=== PATIENT | female | born 1995 | race Caucasian/White ===

== ENCOUNTER 2017-10-18 04:16 | Inpatient (IN) | payer OTHER ==
[~2017-10-18] VITALS: Ht 167.6 cm; Wt 59.0 kg
--- NOTE | ~2017-10-18 | HC ---
[facility] [place] [address] CONSULTATION Name: VILMA GARCIA Room #: 401-I [facility] Erasto Medel#: [id number] Admission: 10/18/17 Attend Phys: Mickey Bradshaw MD, Discharge: Date of : 89 Report #: [id number] THIS REPORT FOR: //name// CC: Mickey Palencia REASON FOR CONSULTATION: I was asked to evaluate concerning abdominal pain and erythema nodosum lesions. HISTORY OF PRESENT ILLNESS: The patient was a 22-year-old otherwise healthy individual who traveled to the [facility] 2 weeks ago. Two days after return visit, she developed upper abdominal discomfort. This has persisted. She has had no definite fever, although she has had night sweats. No nausea or vomiting. Her stools have been normal. Has some headache. Developed some aphthous ulcers to her oral mucosa. No neck stiffness. No photophobia. No cough or sputum production. No sore throat. Did develop rash to her left anterior chest with mild pruritus. She has had development of painful erythematous raised lesions to her lower extremities 2 days ago. These have progressed. No vaginal discharge. No dysuria or frequency. She is on Zoloft and control. She has not allowed breakthrough for the last 3 months. Last menstrual period was in June. No HIV risk factors. Other members of her traveling alliance party, 2 adults and 2 children. Both children are ill with fever, one of which is being treated for influenza. This, however, has not been documented positive. ALLERGIES: PENICILLIN with rash. MEDICATIONS: As noted above. PAST MEDICAL HISTORY: Unremarkable. FAMILY HISTORY: Noncontributory. SOCIAL HISTORY: Nonsmoker and intermittent social alcohol intake. REVIEW OF SYSTEMS: As noted above. No tuberculosis exposure. PHYSICAL EXAMINATION: VITAL SIGNS: Afebrile, hemodynamically stable. GENERAL: She was alert and cooperative and pleasant, in no acute distress. HEENT: Mild conjunctival injection, right eye. Mouth: Three aphthous ulcers, one of which is on the lower lip at the mucosal border. NECK: Supple, no thyromegaly, no adenopathy. LUNGS: Clear. HEART: Regular without murmur. ABDOMEN: Soft, tender in the right upper quadrant. No guarding or rebound. No masses or hepatosplenomegaly. [address] [address] CONSULTATION Name: VILMA GARCIA Room #: [address] [place] [address] Erasto Medel#: [id number] Admission: 10/18/17 Attend Phys: Mickey Bradshaw MD, Discharge: Date of : 93 Report #: [id number] GENITAL AND RECTAL: Not performed. EXTREMITIES: Unremarkable. SKIN: Mildly erythematous papular rash to her left anterior chest. Lower extremities, erythematous, tender raised lesions of various sizes, mostly over the anterior aspect of her lower legs, but also upper lateral thighs. NEUROLOGIC: Normal. LABORATORY DATA: Hemoglobin 13.1, WBC 11.2, platelet count 313,000. Differential: 79% segs, 12% lymphs. Sedimentation rate 53. Sodium 138, potassium 3.8, bicarbonate 24, creatinine 0.7, glucose 109, ALT 22, AST 18, bilirubin 0.3, alkaline phosphatase 67. C-reactive protein 167. TSH normal. Lipase normal. Monospot negative. Beta hCG negative. Urinalysis, few wbc's, many bacteria. CT scan of the abdomen and pelvis, haziness within the maria teresa hepatis, otherwise unremarkable. Considering possibility of mild duodenitis. Transvaginal ultrasound, mild thickening of the endocervical canal. IMPRESSION: A 22-year-old, recent travel from [facility] presents with suspected low grade fever, night sweats, persistent abdominal pain with erythema nodosum lesions, elevated sedimentation rate, mild leukocytosis concerning for typhoid, other consideration viral etiology. Although group A strep is commonly associated with erythema nodosum, I am finding no definite streptococcal findings. Nothing to suggest sarcoid or tuberculosis at this time. With the endocervical changes, would also evaluate for chlamydia and other STDs. The patient does not, however, give me a good history of such exposure. Although no diarrhea, we will also check Giardia and stool for Salmonella, Campylobacter which can be associated with erythema nodosum. Inflammatory bowel disease would also be a consideration, although her acute onset and recent travel would suggest different. We will treat with ceftriaxone, doxycycline, metronidazole for now. If her GC chlamydia negative, we can drop out the doxycycline and metronidazole. We will await blood cultures and stool cultures. We will also check chest x-ray and serologic studies. Case was discussed with the patient, her mother and nursing at the bedside. We will discuss further with attending. <ELECTRONICALLY SIGNED> By: Javier Lopez MD 10/20/17 0738 [id number] 51 Javier Lopez MD /nt
--- NOTE | ~2017-10-18 | 2DMMODE ---
[facility] [address] [place] [address] 2 D/M-MODE ECHOCARDIOGRAM Name: VILMA GARCIA Room #: 401-I [facility] IN ..#: [id number] Admission: 10/18/17 Attend Phys: Mickey Bradshaw, Discharge: Date of : 93 Date of Service: 10/20/17 0853 Report #: [id number] THIS REPORT FOR: //name// APPROVED REPORT Study performed: 10/20/2017 07:57:42 EXAM: Comprehensive 2D, Doppler, and color-flow Echocardiogram Patient Location: Bedside Room #: 401 Status: routine BSA: 1.67 HR: 62 bpm BP: 122/70 mmHg Other Information Study Quality: Good Indications Hypertension/HDD 2D Dimensions RVDd: 29.44 mm LVEF(%): 63.63 (>50%) IVSd: 11.10 (7-11mm) LVOT Diam: 18.54 (18-24mm) LVDd: 42.19 mm PWd: 11.83 (7-11mm) Ascending Ao: 27.58 (22-36mm) LVDs: 27.74 (25-40mm) Aortic Root: 26.76 mm IVC: 18.00 mm Reynoso's LVEF: 63.63 % Volumes Left Atrial Volume (Systole) Single Plane 4CH: 40.73 mL Single Plane 2CH: 33.01 mL LA ESV Index: 27.00 mL/m2 Aortic Valve AoV Peak Joel.: 1.25 m/s AO Peak Gr.: 6.23 mmHg LVOT Max P.19 mmHg LVOT Max V: 1.02 m/s KIRILL Vmax: 2.21 cm2 Mitral Valve E/A Ratio: 1.6 MV Decel. Time: 246.66 ms MV E Max Joel.: 0.97 m/s [facility] [address] [place] [address] 2 D/M-MODE ECHOCARDIOGRAM Name: VILMA GARCIA Room #: 401-I [facility].#: [id number] Admission: 10/18/17 Attend Phys: Mickey Bradshaw, Discharge: Date of : 89 Date of Service: 10/20/17 0853 Report #: [id number] MV A Joel.: 0.59 m/s MV PHT: 71.53 ms IVRT: 79.58 ms Pulmonary Valve PV Peak Joel.: 0.92 m/s PV Peak Gr.: 3.40 mmHg Pulmonary Vein P Vein S: 0.64 m/s P Vein A: 0.51 m/s P Vein D: 0.59 m/s P Vein A Dur.: 166.1 msec P Vein S/D Ratio: 1.08 Tricuspid Valve RAP Estimate: 5.00 mmHg Left Ventricle The left ventricle is normal size. There is normal LV segmental wall motion. There is normal left ventricular wall thickness. The left ventricular systolic function is normal. The left ventricular ejection fraction is within the normal range. LVEF is 60-65%. The left ventricular diastolic function is normal. Right Ventricle The right ventricle is normal size. The right ventricular systolic function is normal. Atria The left atrium size is normal. The right atrium size is normal. Aortic Valve The aortic valve is normal in structure. No aortic regurgitation is present. There is no aortic valvular stenosis. Mitral Valve The mitral valve is normal in structure. Anterior leaflet systolic flattening without prolapse Mild mitral regurgitation. No evidence of mitral valve stenosis. Tricuspid Valve The tricuspid valve is normal in structure. Trace tricuspid regurgitation. Pulmonic Valve The pulmonary valve is normal in structure. Trace pulmonic regurgitation. [facility] [address] [place] [address] 2 D/M-MODE ECHOCARDIOGRAM Name: MICHELLE GARCIABRYSON Torre Room #: 401-I [facility] IN [facility]#: [id number] Admission: 10/18/17 Attend Phys: Mickey Bradshaw, Discharge: Date of : 89 Date of Service: 10/20/17 0853 Report #: [id number] Great Vessels The aortic root is normal in size. IVC is normal in size and collapses >50% with inspiration. Pericardium There is no pericardial effusion. <Conclusion> The left ventricular systolic function is normal. There is normal LV segmental wall motion. LVEF is 60-65%. Normal diastolic function The aortic valve is normal in structure. No aortic valvular stenosis or insufficiency. The mitral valve is normal in structure. Mild anterior systolic flattening without prolapse. Mild mitral regurgitation. Pulmonary artery pressure could not be reliably ascertained There is no pericardial effusion. <ELECTRONICALLY SIGNED> By: Alfa Deras MD, FACC 10/20/17 0853 2 2 Alfa Deras MD, FACC /INF
--- NOTE | ~2017-10-18 | H ---
[facility] [place] [address] HISTORY AND PHYSICAL Name: VILMA GARCIA Room #: 401-I [facility] [place] M.R.#: [id number] Admission: 10/20/17 Attend Phys: Mickey Bradshaw MD, Discharge: 10/20/17 Date of : 93 Report #: [id number] THIS REPORT FOR: //name// CC: Mickey Palencia DATE OF SERVICE: 10/18/2017 HISTORY OF PRESENT ILLNESS: The patient is a 22-year-old female who was admitted with one week history of progressive abdominal pain, now localized to right lower quadrant, mildly constitutionally sick. No high fevers that have been documented, a recent week in the [facility], was not sick there. She has been exposed to nieces with influenza. The only medications are Zoloft and control pills. Has fluctuating and waves of nauseas. Abdominal CAT scan suggests some haziness around the head of the pancreas, but more importantly is the question of some uterine abnormality, some fluid in the cul-de-sac and some uterine fluid. LABORATORY DATA: Sed rate is 53 and CRP is 167. White count 11,000. Chemistry and liver function tests are otherwise normal. PAST MEDICAL HISTORY: Essentially negative. SOCIAL HISTORY: She is a single, college graduate. Social alcohol, no tobacco or illicit drugs. FAMILY HISTORY: Has sister with IgA nephropathy, otherwise nothing significant. REVIEW OF SYSTEMS: Essentially negative except for as stated above and some anorexia this week. PHYSICAL EXAMINATION: GENERAL: She is in mildly discomfort. VITAL SIGNS: Blood pressure is 146/83, pulse is 90s and regular. HEENT: Eyes reveal xanthelasmas. Pharynx is clear. NECK: Shows preserved upstrokes. There are some aphthous ulcers in the mouth area. LUNGS: Clear. CARDIOVASCULAR: Regular rate and rhythm, S1, S2. ABDOMEN: Does have some tenderness and some mild rebound in the right lower quadrant. Bowel sounds are noted. There is no hepatosplenomegaly. EXTREMITIES: Reveal no edema. Distal pulses were intact. There are raised painful areas on the lower extremities consistent with erythema nodosum. NEUROLOGIC: Nonfocal. SKIN: Warm and dry without xanthoma or ulcer. MUSCULOSKELETAL: No gross joint deformity. [address] [address] HISTORY AND PHYSICAL Name: VILMA GARCIA [facility] [place] ..#: [id number] Admission: 10/20/17 Attend Phys: Mickey Bradshaw MD, Discharge: 10/20/17 Date of : 93 Report #: [id number] ASSESSMENT: 1. Acute right lower quadrant pain with uterine abnormality noted on CT scan. 2. Marked elevation in the sed rate and C-reactive protein. 3. Erythema nodosum noted of the lower extremities. RECOMMENDATIONS AND PLAN: We will obtain pelvic endovascular ultrasound. We will ask Infectious Disease and SUPERVISORY CLERK to consult. Also, may consider rheumatologic consult here. Erythema nodosum can be seen with inflammatory bowel with no evidence of this on the CAT scan, although there were no delayed images. Other connective tissue autoimmune disorders, strep infection, Behcet's. The patient has fair condition. We will admit to 401. <ELECTRONICALLY SIGNED> By: Mickey Bradshaw MD, FACC 10/23/17 2142 0636 [id number] Mickey Bradshaw MD, FACC /nt
--- NOTE | ~2017-10-18 | D ---
[facility] [place] [address] DISCHARGE SUMMARY Name: VILMA GARCIA Room #: 401-I [facility] IN M.R.#: [id number] Admission: 10/20/17 Attend Phys: Mickey Bradshaw MD, Discharge: 10/20/17 Date of : 93 Report #: [id number] THIS REPORT FOR: //name// CC: Mickey Palencia MD [facility] COURSE: The patient is a 22-year-old female who was admitted with progressive abdominal pain, weakness, intermittent fever and erythema nodosum. She had had travel history 10 days prior to the [facility] for a week where she had drunk the water and remembers several insect bites. She had, besides the erythema nodosum, had some nondescript rash on her chest and a very small left knee effusion, right flank and abdominal pain, which initially presented as possibly GI. Was evaluated with a CT scan and a pelvic ultrasound. No significant findings there. She had a pelvic exam 2 days prior, so there was seemed to be some swelling of the endocervical canal presumed from the exam. Otherwise, it was felt to be a normal exam. Multiple laboratory work was obtained here. Throat cultures, strep was negative. HIV, syphilis obviously all negative. Fairly normal chemistry, liver function test. On presentation, the sed rate was 53 and the CRP was 167.7. H and H 11 and 31.7 at discharge, but there have been a fair amount of blood draws. White count initially 11,000, now 8000. Rheumatoid factor and complements as well were checked. They were unremarkable. Hepatitis screen was negative. HIV was negative, nonreactive, ANCA is pending. Cultures are so far negative. Initially, it was thought that possibly this was typhoid. He had that type of presentation. She was treated with IV ceftriaxone, doxycycline and Flagyl. She has slowly improved with some slight improvement in the erythema nodosum, although still painful. Headache has resolved and flank pain, abdominal pain is also resolved. There was never much in the way of any significant diarrhea. Will be discharged to home on Levaquin 750 mg once a day for 1 week. Follow up in up in 1 week. [place] diet slowly advanced. Can use anti-inflammatories as needed here for the knee and erythema nodosum pain. Slowly increase activity. DISCHARGE DIAGNOSES: 1. What appears to be travel related bacterial infection with negative cultures thus far. 2. Possible acute viral syndrome. 3. Erythema nodosum, probable secondary to above. 4. Borderline hypertension with a normal echo, I suspect may be physiologic response, but we will monitor blood pressures as an outpatient. Blood pressures have finally improved today to a normal range. This has been discussed with the patient and her mother. She will be discharged to home. [address] [address] DISCHARGE SUMMARY Name: MICHELLE GARCIABRYSON Torre Room #: 401-I [facility] IN M.R.#: [id number] Admission: 10/20/17 Attend Phys: Mickey Bradshaw MD, Discharge: 10/20/17 Date of : 93 Report #: [id number] Thank you for asking me to assist in care of this patient. <ELECTRONICALLY SIGNED> By: Mickey Bradshaw MD, FACC 10/23/17 2140 0950 1121 Mickey Bradshaw MD, FACC /nt
[2017-10-18 04:17] VITALS: BP 147/102
[2017-10-18] MEDS ORDERED: SERTRALINE HCL50 MG PO (04:26)
[2017-10-18] MEDS ORDERED: [UNRECOGNIZED DRUG - OTHER] PO (04:27)
[2017-10-18 04:38] LABS: URINE BILIRUBIN NEGATIVE (Negative); URINE BLOOD 3+ (Negative); URINE CLARITY CLEAR; URINE COLOR YELLOW; URINE GLUCOSE-RANDOM* NEGATIVE (Negative); URINE KETONES TRACE (Negative); URINE NITRITE-REFLEX NEGATIVE (Negative); URINE PROTEIN (DIPSTICK) NEGATIVE (Negative); URINE SPECIFIC GRAVITY >= 1.030 (1.005-1.035)
[2017-10-18 04:39] LABS: URINE LEUKOCYTES-REFLEX TRACE (Negative)
[2017-10-18 04:45] LABS: ABSOLUTE NEUTROPHILS 8.8 thou/uL (1.4-8.2); BASOPHILS 0.6 % (0.0-2.0); EOSINOPHILS 1.6 % (0.0-3.0); HEMATOCRIT 38.1 % (37.0-47.0); HEMOGLOBIN 13.1 gm/dL (12.0-15.0); LYMPHOCYTES 12.5 % (24.0-44.0); MCH 29.4 pg (26.0-34.0); MCHC 34.4 g/dL (28.0-37.0); MCV 85.6 fL (80.0-100.0); MONOCYTES 6.3 % (1.0-8.0); PLATELET COUNT 313 thou/uL (150-400); RBC 4.44 mil/uL (4.20-5.00); RDW 12.1 % (10.5-14.5); WBC 11.2 thou/uL (4.0-11.0)
[2017-10-18 04:53] LABS: CALCIUM 8.9 mg/dL (8.5-10.1); CREATININE 0.7 mg/dL (0.6-1.0); POTASSIUM 3.8 mmol/L (3.5-5.1)
[2017-10-18 04:58] LABS: ALBUMIN 3.5 g/dL (3.4-5.0); TOTAL BILIRUBIN 0.3 mg/dL (<0.1-1.0); TOTAL PROTEIN 7.8 g/dL (6.4-8.2)
[2017-10-18 05:00] LABS: MUCUS >6 Heavy strn/LPF (None Seen); SQUAMOUS >10 Many /LPF (0-3)
[2017-10-18 05:01] LABS: BACTERIA-REFLEX >30 Many /HPF (None Seen); CASTS None Seen /LPF (None Seen); CRYSTALS None Seen /LPF (None Seen); URINE RBC 3-10 Few /HPF (0-2); URINE WBC-REFLEX 6-15 Few /HPF (0-5)
[2017-10-18 05:43] LABS: ESR (SEDRATE) 53 mm/hr (0-20)
[2017-10-18 06:33] VITALS: BP 147/83
[2017-10-18 07:21] VITALS: BP 147/83
[2017-10-18 15:48] VITALS: BP 145/98
[2017-10-18 19:21] VITALS: BP 154/94
[2017-10-19 04:18] VITALS: BP 150/56
[2017-10-19 15:20] VITALS: BP 134/90
[2017-10-19 19:08] VITALS: BP 149/95
[2017-10-19 20:10] LABS: COMPLEMENT-C3 163 mg/dL (82-167); COMPLEMENT-C4 22 mg/dL (14-44)
[2017-10-19 22:06] LABS: HIV ANTIBODY Non Reactive (Non Reactive)
[2017-10-19 23:07] LABS: HEPATITIS B SURFACE AG Negative (Negative); HEPATITIS C VIRUS AB <0.1 (0.0-0.9)
[2017-10-20 04:00] VITALS: BP 122/70
[2017-10-20 06:21] LABS: HEMATOCRIT 31.7 % (37.0-47.0); MCH 29.9 pg (26.0-34.0); MCHC 34.9 g/dL (28.0-37.0); MCV 85.8 fL (80.0-100.0); RBC 3.7 mil/uL (4.20-5.00); WBC 8.1 thou/uL (4.0-11.0)
[2017-10-20 06:25] LABS: HEMOGLOBIN 11.1 gm/dL (12.0-15.0)
[2017-10-20] MEDS ORDERED: LEVAQUIN 500 M500 M1 PO (09:22)
[2017-10-20 09:29] VITALS: BP 122/70
[2017-10-21 10:08] LABS: ANA INTERPRETATION Negative (Negative)
[2017-10-21 14:08] LABS: SYPHILIS AB Negative (Negative)
== END 2017-10-20 10:50 | disposition home or self-care (01) | DRG 866 ==
LOC: ER 04:16 → 4N 06:06 → EROBS 06:06 → 4N 07:06 → EROBS 07:06 → 4N 10-20 08:30 → ENTRNSPT 10-20 10:43 → EDTRNSPTSTS 10-20 10:44 → 4N 10-20 10:50
PROVIDERS: Emergency Medicine; Internal Medicine Cardiovascular Disease; Specialist
DX: B34.9 Viral infection, unspecified (principal); L52 Erythema nodosum; K12.1 Other forms of stomatitis; Z88.0 Allergy status to penicillin
CPT/HCPCS: 10091